=== PATIENT | female | born 1980 | race African-American/Black ===

== ENCOUNTER 2017-06-13 14:01 | Inpatient (IN) | payer MEDICAID ==
[~2017-06-13] VITALS: Ht 167.6 cm; Wt 99.8 kg
[2017-06-13] MEDS ORDERED: METOCLOPRAMIDE HCL 10MG/2ML VIAL IV STA (16:44)
[2017-06-13] MEDS ORDERED: SODIUM CHLORIDE 0.9% 1,000 ML IV ONE ×2 (16:44→18:10)
[2017-06-13 17:26] LABS: CLARITY URINE CLEAR (CLEAR); COLOR URINE YELLOW (YELLOW); GLUCOSE URINE NEGATIVE (NEGATIVE); KETONES URINE 4+ (NEGATIVE); LEUKOCYTE ESTERASE URINE 1+ (NEGATIVE); NITRITE URINE NEGATIVE (NEGATIVE); OCCULT BLOOD URINE 2+ (NEGATIVE); PROTEIN URINE TRACE (NEGATIVE); SPECIFIC GRAVITY URINE 1.021 (1.005-1.030); UROBILINOGEN URINE 0.2 E.U./dL (0.2-1.0)
[2017-06-13] MEDS ORDERED: ACETAMINOPHEN 500MG TABLET PO ONE (18:15)
[2017-06-13] MEDS ORDERED: ONDANSETRON HCL 4MG/2ML VIAL IV ONE ×2 (18:15→20:15)
[2017-06-13] MEDS ORDERED: FAMOTIDINE 20MG/2ML VIAL IV ONE (18:15)
[2017-06-13 18:44] LABS: BASOPHILS % 0.5 % (0.0-2.0); HEMATOCRIT. 35.3 % (36.0-48.0); MEAN CORPUSCULAR HEMOGLOBIN 28.5 pg (28.0-32.0); MEAN CORPUSCULAR VOLUME 83.8 fL (81.0-99.0); MEAN PLATELET VOLUME 8.6 fl (7.4-10.4); MONOCYTES % 2.1 % (2.0-8.0); NEUTROPHILS % 83.4 % (40.0-76.0); PLATELET 239 x1000/uL (130-400); RED BLOOD CELL COUNT 4.22 mill/uL (4.2-5.4); RED CELL DISTRIBUTION WIDTH 13.2 % (11.6-14.6)
[2017-06-13 18:51] LABS: CHLORIDE 105 mEq/L (98-107)
[2017-06-13 19:01] LABS: CARBON DIOXIDE 20 mEq/L (21-32)
[2017-06-13 19:31] LABS: B-HCG QUANTITATIVE 14039 mIU/mL (<3)
[2017-06-13] MEDS ORDERED: CEFTRIAXONE 1 G PREMIX 50 ML IV ONE (20:30)
[2017-06-13] MEDS ORDERED: SODIUM CHLORIDE 0.9% 100 ML IV ONE (21:00)
[2017-06-13] MEDS ORDERED: MAGNESIUM/ALUMINUM HYDROXIDE/SIMETHICONE 30ML UDC PO ONE (22:30)
[2017-06-13] MEDS ORDERED: VISCOUS LIDOCAINE 2% 15 ML UDC PO ONE (22:30)
[2017-06-14 04:00] VITALS: BP 126/84
[2017-06-14] MEDS ORDERED: ACETAMINOPHEN 650MG/20.3ML UDC PO PRN (05:45)
[2017-06-14] MEDS: ONDANSETRON HCL 4MG/2ML VIAL IV SCH ×4 (06:35→20:47)
[2017-06-14] MEDS: PANTOPRAZOLE SODIUM 40 MG/VIAL IV SCH ×2 (06:35→08:40)
[2017-06-14] MEDS ORDERED: ACETAMINOPHEN 325MG TABLET PO PRN ×2 (07:30)
[2017-06-14 08:00] VITALS: BP 134/76
[2017-06-14 08:55] LABS: HEMATOCRIT. 32.4 % (36.0-48.0); HEMOGLOBIN. 10.5 g/dL (12.0-16.0); MEAN CORPUSCULAR HEMOGLOBIN 27.8 pg (28.0-32.0); MEAN CORPUSCULAR VOLUME 85.5 fL (81.0-99.0); RED BLOOD CELL COUNT 3.79 mill/uL (4.2-5.4)
[2017-06-14 12:00] VITALS: BP 113/73
[2017-06-14 12:54] LABS: CARBON DIOXIDE 22 mEq/L (21-32); CHLORIDE 105 mEq/L (98-107)
[2017-06-14] MEDS: METOCLOPRAMIDE HCL 10MG/2ML VIAL IV SCH ×2 (13:19→18:27)
[2017-06-14] MEDS: DEXT 5%/0.45% NACL 500 ML IV SCH ×2 (13:54→18:27)
[2017-06-14] MEDS ORDERED: POTASSIUM CHLORIDE 20MEQ TABLET SR PO NR (15:45)
[2017-06-14 16:00] VITALS: BP 109/58
[2017-06-14 20:00] VITALS: BP 136/96
[2017-06-14] MEDS ORDERED: CEFTRIAXONE 1 G PREMIX 50 ML IV SCH (20:00)
[2017-06-15] VITALS: BP 114/74
[2017-06-15] MEDS: METOCLOPRAMIDE HCL 10MG/2ML VIAL IV SCH ×3 (01:47→11:57)
[2017-06-15] MEDS: ONDANSETRON HCL 4MG/2ML VIAL IV SCH ×4 (01:47→11:57)
[2017-06-15] MEDS: DEXT 5%/0.45% NACL 500 ML IV SCH ×2 (01:47→08:13)
[2017-06-15 08:00] VITALS: BP 131/77
[2017-06-15] MEDS: PANTOPRAZOLE SODIUM 40 MG/VIAL IV SCH (08:16)
== END 2017-06-15 12:35 | disposition left against medical advice (07) | DRG 566 ==
LOC: ER 18:32 → 6EST 06-14 01:32 → ENRESERV 06-14 02:31
PROVIDERS: ADMIT Hospitalist; ATTEND Obstetrics & Gynecology
DX: O21.0 Mild hyperemesis gravidarum (principal); O10.911 Unspecified pre-existing hypertension complicating pregnancy, first trimester; O23.41 Unspecified infection of urinary tract in pregnancy, first trimester; A59.9 Trichomoniasis, unspecified; F17.210 Nicotine dependence, cigarettes, uncomplicated; K21.9 Gastro-esophageal reflux disease without esophagitis; Z53.21 Procedure and treatment not carried out due to patient leaving prior to being seen by health care provider; O99.331 Smoking (tobacco) complicating pregnancy, first trimester; O09.521 Supervision of elderly multigravida, first trimester; Z3A.01 Less than 8 weeks gestation of pregnancy; Z90.49 Acquired absence of other specified parts of digestive tract
CPT/HCPCS: 36415; 76801; 80048; 80053; 81001; 81025; 83690; 84702; 85007; 85025; 85027; 96361; 96365; 96375; 96376; 99285; C9113; J0696; J2405; J2765; J3490; J7030; J7050

== ENCOUNTER 2017-06-26 23:10 | Emergency (ER) | payer MEDICAID ==
[~2017-06-26] VITALS: Ht 165.1 cm; Wt 69.0 kg
[2017-06-27] MEDS ORDERED: PYRIDOXINE HCL 50MG TABLET PO ONE (00:30)
[2017-06-27] MEDS ORDERED: MAGNESIUM/ALUMINUM HYDROXIDE/SIMETHICONE 30ML UDC PO ONE (00:30)
[2017-06-27] MEDS ORDERED: DICYCLOMINE HCL 10MG CAPSULE PO ONE (00:30)
[2017-06-27 01:14] VITALS: BP 132/81
[2017-06-27] MEDS ORDERED: PYRIDOXINE 100 MG/ML 1ML IM ONE (02:30)
== END 2017-06-27 03:18 | disposition home or self-care (01) ==
LOC: ER 23:10
DX: O21.0 Mild hyperemesis gravidarum (principal); O10.911 Unspecified pre-existing hypertension complicating pregnancy, first trimester; K21.9 Gastro-esophageal reflux disease without esophagitis; O26.891 Other specified pregnancy related conditions, first trimester; Z3A.08 8 weeks gestation of pregnancy; Z88.0 Allergy status to penicillin; Z90.49 Acquired absence of other specified parts of digestive tract
CPT/HCPCS: 93005; 96372; 99284; J3415; Z7610

== ENCOUNTER 2018-03-07 13:11 | Emergency (ER) | payer MEDICAID ==
[~2018-03-07] VITALS: Ht 168.9 cm; Wt 100.0 kg
[2018-03-07] MEDS ORDERED: CYCLOBENZAPRINE 10MG TABLET PO ONE (15:15)
[2018-03-07] MEDS ORDERED: KETOROLAC 30MG/ML VIAL IM ONE (15:15)
[2018-03-07 16:07] VITALS: BP 156/84
== END 2018-03-07 16:10 | disposition home or self-care (01) ==
LOC: ER 13:11
DX: M54.9 Dorsalgia, unspecified (principal); G89.29 Other chronic pain; I10 Essential (primary) hypertension; Z88.0 Allergy status to penicillin
CPT/HCPCS: 96372; 99283; J1885

== ENCOUNTER 2018-05-09 11:24 | Emergency (ER) | payer MEDICAID ==
[~2018-05-09] VITALS: Ht 152.4 cm; Wt 119.0 kg
[2018-05-09 13:05] LABS: BASOPHILS % 0.5 % (0.0-2.0); HEMATOCRIT. 37.2 % (36.0-48.0); HEMOGLOBIN. 12.5 g/dL (12.0-16.0); LYMPHOCYTES % 20.9 % (20.0-50.0); MEAN CORPUSCULAR HEMOGLOBIN 28.1 pg (28.0-32.0); MEAN CORPUSCULAR VOLUME 83.8 fL (81.0-99.0); MEAN PLATELET VOLUME 8.3 fl (7.4-10.4); MONOCYTES % 3.4 % (2.0-8.0); NEUTROPHILS % 75.2 % (40.0-76.0); PLATELET 293 x1000/uL (130-400); RED BLOOD CELL COUNT 4.44 mill/uL (4.2-5.4); RED CELL DISTRIBUTION WIDTH 13.3 % (11.6-14.6)
[2018-05-09 13:09] LABS: CHLORIDE 111 mEq/L (98-107)
[2018-05-09] MEDS ORDERED: SODIUM CHLORIDE 0.9% 1,000 ML IV ONE (13:11)
[2018-05-09 13:12] LABS: INR 1.1
[2018-05-09] MEDS ORDERED: ONDANSETRON HCL 4MG/2ML VIAL IV ONE (13:15)
[2018-05-09 13:31] LABS: HCG SCREEN NEGATIVE
[2018-05-09 14:10] LABS: CLARITY URINE CLEAR (CLEAR); COLOR URINE YELLOW (YELLOW); KETONES URINE 2+ (NEGATIVE); LEUKOCYTE ESTERASE URINE NEGATIVE (NEGATIVE); NITRITE URINE NEGATIVE (NEGATIVE); OCCULT BLOOD URINE 2+ (NEGATIVE); PROTEIN URINE 1+ (NEGATIVE); SPECIFIC GRAVITY URINE 1.026 (1.005-1.030); UROBILINOGEN URINE 0.2 E.U./dL (0.2-1.0)
[2018-05-09] MEDS ORDERED: FAMOTIDINE 20MG/2ML VIAL IV ONE (14:15)
[2018-05-09] MEDS ORDERED: MORPHINE SULFATE 4 MG/ML CPJ (NOT FOR IM USE) IV ONE (14:15)
[2018-05-09] MEDS ORDERED: METOCLOPRAMIDE HCL 10MG/2ML VIAL IV ONE (14:15)
[2018-05-09] MEDS ORDERED: LABETALOL 5MG/ML SYR 20 MG/4 ML SYRINGE IV ONE (14:30)
[2018-05-09 16:35] LABS: *AMPHETAMINES SCREEN URINE NEGATIVE (NEGATIVE)
[2018-05-09 16:36] LABS: *BARBITURATES SCREEN URINE NEGATIVE (NEGATIVE); *BENZODIAZEPINES SCREEN URINE NEGATIVE (NEGATIVE); *COCAINE SCREEN URINE NEGATIVE (NEGATIVE); METHADONE URINE SCREEN NEGATIVE (NEGATIVE); OPIATES URINE SCREEN NEGATIVE (NEGATIVE); PHENCYCLIDINE URINE SCREEN NEGATIVE (NEGATIVE)
[2018-05-09 16:38] LABS: CANNABINOID URINE SCREEN PRESUMTIVE POSITIVE (NEGATIVE)
[2018-05-09] MEDS ORDERED: LABETALOL 5MG/ML SYR 20 MG/4 ML SYRINGE IV NR (16:45)
[2018-05-09 16:55] VITALS: BP 168/79
== END 2018-05-09 17:38 | disposition home or self-care (01) ==
LOC: ER 15:31
DX: R10.13 Epigastric pain (principal); I10 Essential (primary) hypertension; R11.2 Nausea with vomiting, unspecified; R19.7 Diarrhea, unspecified; F12.10 Cannabis abuse, uncomplicated; R16.0 Hepatomegaly, not elsewhere classified; E66.9 Obesity, unspecified; R73.9 Hyperglycemia, unspecified; E87.2 Acidosis; Z68.43 Body mass index [BMI] 50.0-59.9, adult; Z90.49 Acquired absence of other specified parts of digestive tract; Z88.0 Allergy status to penicillin
CPT/HCPCS: 36415; 74022; 76705; 80053; 80305; 81003; 81025; 83690; 84484; 84703; 85025; 85610; 93005; 96361; 96374; 96375; 99285; J2270; J2405; J2765; J3490; J7030; Z7610

== ENCOUNTER 2019-03-14 19:32 | Emergency (ER) | payer MEDICAID ==
[~2019-03-14] VITALS: Ht 167.6 cm; Wt 91.0 kg
[2019-03-14 19:38] VITALS: BP 158/87
== END 2019-03-14 23:48 | disposition left against medical advice (07) ==
LOC: ER 20:47
DX: M54.9 Dorsalgia, unspecified (principal); Z53.21 Procedure and treatment not carried out due to patient leaving prior to being seen by health care provider